=== PATIENT | female | born 1990 | race Caucasian/White ===

== ENCOUNTER 2019-02-25 19:33 | Inpatient (IN) | payer MEDICAID, OTHER ==
[~2019-02-25] VITALS: Ht 157.5 cm; Wt 83.6 kg
[~2019-02-25 19:33] MED LIST: AMLO2.5T4 PO; SERT50TA12 PO
[2019-02-25 22:05] LABS: AMPHET/METH SCREEN,URINE NEGATIVE (NEGATIVE); BARBITURATE SCREEN, URINE NEGATIVE (NEGATIVE); BENZODIAZEPINES SCREEN,URINE POSITIVE (NEGATIVE); CANNABINOID SCREEN,URINE NEGATIVE (NEGATIVE); COCAINE SCREEN,URINE NEGATIVE (NEGATIVE); METHADONE SCREEN, URINE NEGATIVE (NEGATIVE); OPIATE SCREEN,URINE NEGATIVE (NEGATIVE); PHENCYCLIDINE SCREEN,URINE NEGATIVE (NEGATIVE)
[2019-02-25] MEDS ORDERED: LORazepam 2 MG TABLET PO PRN (22:15)
[2019-02-25] MEDS ORDERED: HALOPERIDOL 5 MG TABLET PO PRN (22:15)
[2019-02-25] MEDS ORDERED: ChlordiazePOXIDE HCL 25 MG CAPSULE PO PRN (22:15)
[2019-02-25 23:39] LABS: BASOPHILS % (AUTO) 1.2 % (0.0-2.0); EOSINOPHILS % (AUTO) 1.8 % (1.0-6.0); HEMATOCRIT 41.3 % (36-46); HEMOGLOBIN 13.5 g/dL (12.0-16.0); LYMPHOCYTES # (AUTO) 2.6 K/uL (1.0-4.8); LYMPHOCYTES % (AUTO) 41.7 % (22.0-44.0); MEAN CORPUSCULAR HEMOGLOBIN 29.4 pg (26.0-34.0); MEAN CORPUSCULAR HGB CONC 32.6 G/dL (31.0-37.0); MEAN CORPUSCULAR VOLUME 90 fL (80-100); MONOCYTES # (AUTO) 0.4 K/uL (0.1-1.0); MONOCYTES % (AUTO) 6.2 % (2.0-9.0); NEUTROPHILS % (AUTO) 49.1 % (40.0-70.0); PLATELET COUNT (AUTO) 163 K/uL (150-450); RED BLOOD CELL COUNT(AUTO) 4.57 MIL/uL (4.00-5.20); RED CELL DISTRIBUTION WIDTH 13.7 % (11.5-14.5)
[2019-02-25 23:49] LABS: ANION GAP 10 mmol/L (8-16); CALCIUM, TOTAL 8.4 mg/dL (8.8-10.5); CARBON DIOXIDE 27 mmol/L (22-29); CHLORIDE 103 mmol/L (98-107); CREATININE 0.71 mg/dL (0.60-1.30); GLOMERULAR FILTR. RATE CALC > 60 mL/min (>60); GLUCOSE,RANDOM 125 mg/dL (70-110); POTASSIUM 3.7 mmol/L (3.5-5.1); SODIUM SERUM 140 mmol/L (136-145); UREA NITROGEN, BLOOD 11 mg/dL (7-18)
[2019-02-26] LABS: ALANINE AMINOTRANSFERASE 82 U/L (12-78); ALBUMIN 3.7 g/dL (3.4-5.0); ALKALINE PHOSPHATASE 106 U/L (46-116); ASPARTATE AMINOTRANSFERASE 101 U/L (15-37); BILIRUBIN,TOTAL 0.2 mg/dL (0.1-1.0); HCG,QUANTITATIVE < 1 mIU/mL (0-6); TOTAL PROTEIN, SERUM 7.8 g/dL (6.4-8.2)
[2019-02-26 01:12] LABS: APPEARANCE,URINE CLEAR (CLEAR); BILIRUBIN,URINE NEGATIVE (NEGATIVE); GLUCOSE, URINE (UA) NEGATIVE (NEGATIVE); KETONES,URINE NEGATIVE (NEGATIVE); LEUKOCYTE ESTERASE ,URINE NEGATIVE (NEGATIVE); NITRATE,URINE NEGATIVE (NEGATIVE); OCCULT BLOOD,URINE NEGATIVE (NEGATIVE); PH,URINE 6.5 (5.0-8.0); PROTEIN,URINE TRACE (NEGATIVE); UROBILINOGEN,URINE 0.2 mg/dL (<=1.0)
[2019-02-26] MEDS ORDERED: ChlordiazePOXIDE HCL 25 MG CAPSULE PO PRN (07:00)
[2019-02-26] MEDS ORDERED: ChlordiazePOXIDE HCL 25 MG CAPSULE PO SCH (09:00)
[2019-02-26 10:00] VITALS: BP 138/96
[2019-02-26 11:00] VITALS: BP 135/82
[2019-02-26] MEDS ORDERED: GuaiFENesin/D-METHORPHAN [SUGAR-FREE] 200-20MG/10 ML SYRUP UDCUP PO PRN (11:45)
[2019-02-26] MEDS ORDERED: PROMETHAZINE HCL 25 MG TABLET PO PRN (11:45)
[2019-02-26] MEDS ORDERED: TUBERCULIN, PURIFIED PROTEIN DERIVATIVE 5 TU/0.1 ML SYRINGE ID ONE (11:45)
[2019-02-26] MEDS ORDERED: HydrOXYzine PAMOATE 50 MG CAPSULE PO PRN (11:45)
[2019-02-26] MEDS ORDERED: LOPERAMIDE HCL 2 MG CAPSULE PO PRN ×3 (11:45→13:15)
[2019-02-26] MEDS ORDERED: LORazepam 2 MG TABLET PO PRN (11:45)
[2019-02-26] MEDS ORDERED: MAGNESIUM HYDROXIDE SUSPENSION 30 ML UDCUP PO PRN ×2 (11:45→13:15)
[2019-02-26] MEDS ORDERED: CYANOCOBALAMIN 1,000 MCG/ML VIAL IM ONE (11:45)
[2019-02-26] MEDS ORDERED: ACETAMINOPHEN 325 MG TABLET PO PRN ×2 (11:45→13:15)
[2019-02-26] MEDS ORDERED: MAG HYDROX/AL HYDROX/SIMETH ES 30 ML SUSPENSION UDCUP PO PRN ×2 (11:45→13:15)
[2019-02-26] MEDS ORDERED: OLANZapine 5 MG RAPDIS TABLET PO PRN (11:45)
[2019-02-26 12:00] VITALS: BP 141/86
[2019-02-26] MEDS ORDERED: ONDANSETRON HCL 4 MG TABLET PO PRN (13:15)
[2019-02-26] MEDS ORDERED: ALBUTEROL SULFATE HFA 90 MCG/PUFF 8 GM INHALER IH PRN (13:15)
[2019-02-26] MEDS ORDERED: IBUPROFEN 600 MG TABLET PO PRN (13:15)
[2019-02-26] MEDS ORDERED: CloNIDine HCL 0.1 MG TABLET PO PRN (13:15)
[2019-02-26] MEDS ORDERED: BENZOCAINE/MENTHOL LOZENGE MM PRN (13:15)
[2019-02-26] MEDS ORDERED: PETROLATUM,WHITE 28 GM JELLY TP PRN (13:15)
[2019-02-26] MEDS ORDERED: BACITRACIN 28.4 GM OINTMENT TP PRN (13:15)
[2019-02-26] MEDS ORDERED: PNEUMOCOCCAL VACCINE POLYVALENT 0.5 ML VIAL [PPSV23] IM ONE (15:45)
[2019-02-26 16:24] VITALS: BP 123/94
[2019-02-26] MEDS: THIAMINE HCL 100 MG TABLET PO SCH (16:45)
[2019-02-27] VITALS: BP 120/76
[2019-02-27] MEDS: ZOLPIDEM TARTRATE 10 MG TABLET PO PRN
[2019-02-27] MEDS ORDERED: LORazepam 2 MG TABLET PO PRN (07:00)
[2019-02-27] MEDS: FOLIC ACID 1 MG TABLET PO SCH (08:35)
[2019-02-27] MEDS: FLUoxetine HCL 20 MG CAPSULE PO SCH (08:35)
[2019-02-27] MEDS: OMEPRAZOLE 20 MG CAPSULE PO SCH (08:35)
[2019-02-27] MEDS: DOCUSATE SODIUM 100 MG CAPSULE PO SCH (08:35)
[2019-02-27] MEDS: MULTIVITAMINS WITH MINERALS, THERAPEUTIC TABLET PO SCH (08:36)
[2019-02-27] MEDS: THIAMINE HCL 100 MG TABLET PO SCH ×2 (08:36→17:54)
[2019-02-27] MEDS: LORazepam 2 MG TABLET PO SCH ×4 (08:36→21:20)
[2019-02-27 12:00] VITALS: BP 149/95
[2019-02-27 12:17] VITALS: BP 149/95
[2019-02-27 16:00] VITALS: BP 135/73
[2019-02-27 16:04] VITALS: BP 129/80
[2019-02-28 04:45] VITALS: BP 138/77
[2019-02-28 04:47] VITALS: BP 138/77
[2019-02-28] MEDS ORDERED: ChlordiazePOXIDE HCL 10 MG CAPSULE PO PRN (07:00)
[2019-02-28 08:15] VITALS: BP 124/75
[2019-02-28] MEDS: THIAMINE HCL 100 MG TABLET PO SCH ×2 (08:48→17:10)
[2019-02-28] MEDS: FOLIC ACID 1 MG TABLET PO SCH (08:48)
[2019-02-28] MEDS: FLUoxetine HCL 20 MG CAPSULE PO SCH (08:48)
[2019-02-28] MEDS: OMEPRAZOLE 20 MG CAPSULE PO SCH (08:48)
[2019-02-28] MEDS: DOCUSATE SODIUM 100 MG CAPSULE PO SCH (08:49)
[2019-02-28] MEDS: MULTIVITAMINS WITH MINERALS, THERAPEUTIC TABLET PO SCH (08:49)
[2019-02-28] MEDS: LORazepam 2 MG TABLET PO SCH ×4 (08:49→20:29)
[2019-02-28] MEDS ORDERED: ChlordiazePOXIDE HCL 10 MG CAPSULE PO SCH (09:00)
[2019-02-28 12:58] VITALS: BP 124/75
[2019-02-28 16:00] VITALS: BP 140/93
[2019-02-28 16:05] VITALS: BP 140/93
[2019-02-28] MEDS: ZOLPIDEM TARTRATE 10 MG TABLET PO PRN (21:24)
[2019-03-01 00:42] VITALS: BP 118/78
[2019-03-01 00:56] VITALS: BP 118/78
[2019-03-01] MEDS ORDERED: FLUO-191 PO ×2 (03:02→11:04)
[2019-03-01] MEDS ORDERED: ChlordiazePOXIDE HCL 10 MG CAPSULE PO PRN (07:00)
[2019-03-01] MEDS ORDERED: LORazepam 1 MG TABLET PO PRN (07:00)
[2019-03-01 08:25] VITALS: BP 109/60
[2019-03-01 08:30] VITALS: BP 109/60
[2019-03-01] MEDS: FOLIC ACID 1 MG TABLET PO SCH (08:39)
[2019-03-01] MEDS: MULTIVITAMINS WITH MINERALS, THERAPEUTIC TABLET PO SCH (08:39)
[2019-03-01] MEDS: THIAMINE HCL 100 MG TABLET PO SCH (08:39)
[2019-03-01] MEDS: DOCUSATE SODIUM 100 MG CAPSULE PO SCH (08:39)
[2019-03-01] MEDS: OMEPRAZOLE 20 MG CAPSULE PO SCH (08:39)
[2019-03-01] MEDS: FLUoxetine HCL 20 MG CAPSULE PO SCH (08:39)
[2019-03-01] MEDS ORDERED: LORazepam 1 MG TABLET PO SCH (09:00)
[2019-03-01] MEDS ORDERED: OMEP20 PO ×2 (12:59→13:00)
[2019-03-01] MEDS ORDERED: FOLI1 PO (13:01)
[2019-03-01] MEDS ORDERED: THIA100T67 PO (13:01)
[2019-03-01] MEDS ORDERED: MULT-1239 PO (13:01)
[2019-03-01] MEDS ORDERED: DOCU-275 PO (13:01)
[2019-03-02] MEDS ORDERED: LORazepam 1 MG TABLET PO PRN (07:00)
== END 2019-03-01 13:35 | disposition home or self-care (01) | DRG 751 ==
LOC: EMS 19:36 → 5N 21:15 → UNDOADMIN 21:15 → B2S 02-26 09:48
PROVIDERS: ADMIT Psychiatry & Neurology Psychiatry; ATTEND Psychiatry & Neurology Child & Adolescent Psychiatry
DX: F33.2 Major depressive disorder, recurrent severe without psychotic features (principal); Z91.14 Patient's other noncompliance with medication regimen; R45.851 Suicidal ideations; F17.210 Nicotine dependence, cigarettes, uncomplicated; F41.9 Anxiety disorder, unspecified; G47.00 Insomnia, unspecified; Y90.8 Blood alcohol level of 240 mg/100 ml or more; I10 Essential (primary) hypertension; F10.20 Alcohol dependence, uncomplicated; K59.00 Constipation, unspecified; Z91.5 Personal history of self-harm; Z68.33 Body mass index [BMI] 33.0-33.9, adult; Z79.899 Other long term (current) drug therapy; Z91.19 Patient's noncompliance with other medical treatment and regimen; Z65.3 Problems related to other legal circumstances; Z91.040 Latex allergy status
CPT/HCPCS: G0480; J3420

== ENCOUNTER 2021-09-04 19:18 | Emergency (ER) | payer MEDICAID, OTHER ==
[~2021-09-04] VITALS: Ht 157.5 cm; Wt 72.7 kg
[~2021-09-04 19:18] MED LIST changes: -AMLO2.5T4 PO; +DOCU-385 PO; +FLUO-177 PO; +FOLI-130 PO; +MULT-1239 PO; +OMEP20 PO; -SERT50TA12 PO; +THIAMINE HCL100 MG PO
[2021-09-04] MEDS ORDERED: SODIUM CHLORIDE 0.9% 1,000 ML IV ONE (20:15)
[2021-09-04 20:52] LABS: EOSINOPHILS % (AUTO) 0.6 % (1.0-6.0); HEMOGLOBIN 11.8 g/dL (12.0-16.0); LYMPHOCYTES # (AUTO) 1.2 K/uL (1.0-4.8); LYMPHOCYTES % (AUTO) 16.7 % (22.0-44.0); MEAN CORPUSCULAR HEMOGLOBIN 30.7 pg (26.0-34.0); MEAN CORPUSCULAR HGB CONC 33.6 G/dL (31.0-37.0); MEAN CORPUSCULAR VOLUME 91 fL (80-100); MONOCYTES # (AUTO) 0.3 K/uL (0.1-1.0); MONOCYTES % (AUTO) 4.7 % (2.0-9.0); NEUTROPHILS # (AUTO) 5.6 K/uL (1.8-7.7); PLATELET COUNT (AUTO) 114 K/uL (150-450); RED BLOOD CELL COUNT(AUTO) 3.83 MIL/uL (4.00-5.20); RED CELL DISTRIBUTION WIDTH 13.4 % (11.5-14.5)
[2021-09-04 21:00] LABS: ANION GAP 12 mmol/L (8-16); CALCIUM, TOTAL 8.2 mg/dL (8.8-10.5); CARBON DIOXIDE 27 mmol/L (22-29); CHLORIDE 99 mmol/L (98-107); GLUCOSE,RANDOM 82 mg/dL (70-110); POTASSIUM 3.7 mmol/L (3.5-5.1); SODIUM SERUM 138 mmol/L (136-145); UREA NITROGEN, BLOOD 3 mg/dL (7-18)
[2021-09-04 21:01] LABS: GLOMERULAR FILTR. RATE CALC > 60 mL/min (>60)
[2021-09-04 21:06] LABS: ALANINE AMINOTRANSFERASE 50 U/L (12-78); ALBUMIN 2.5 g/dL (3.4-5.0); ALKALINE PHOSPHATASE 188 U/L (46-116); ASPARTATE AMINOTRANSFERASE 386 U/L (15-37); BILIRUBIN,TOTAL 2.5 mg/dL (0.1-1.0); TOTAL PROTEIN, SERUM 7.9 g/dL (6.4-8.2)
[2021-09-04 21:36] VITALS: BP 124/76
== END 2021-09-04 21:44 | disposition home or self-care (01) ==
LOC: EMS 19:22
DX: F41.9 Anxiety disorder, unspecified (principal); F32.9 Major depressive disorder, single episode, unspecified; F10.129 Alcohol abuse with intoxication, unspecified; F17.210 Nicotine dependence, cigarettes, uncomplicated; Z86.69 Personal history of other diseases of the nervous system and sense organs
CPT/HCPCS: 99283; 96360; 80053; 84703; 85025; 36415; G0480; J7030